=== PATIENT | female | born 2000 | race African-American/Black ===

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

== ENCOUNTER 2019-06-03 09:12 | Observation (INO) | payer MEDICAID ==
[~2019-06-03] VITALS: Ht 160 cm; Wt 67.1 kg
[2019-06-03] MEDS ORDERED: LACTATED RINGERS 1,000 ML IV SCH (10:42)
[2019-06-03] MEDS ORDERED: DEXT 5%/LR + PITOCIN 20UNITS/L 1,000 ML IV SCH ×2 (10:42→19:37)
[2019-06-03] MEDS ORDERED: BUTORPHANOL TARTRATE 2 MG/ML VIAL IV PRN (10:45)
[2019-06-03] MEDS ORDERED: MISOPROSTOL 100MCG TABLET VG SCH (10:45)
[2019-06-03] MEDS ORDERED: LIDOCAINE HCL 1% 20ML VIAL (Pyxis) INJ INFIL SCH (10:45)
[2019-06-03] MEDS ORDERED: PENICILLIN G POTASSIUM 5 MMU in DEXT 5% WATER 100 ML IV SCH (12:00)
[2019-06-03 12:11] LABS: BASOPHILS % 0.4 % (0.0-2.0); HEMATOCRIT. 31.1 % (36.0-48.0); HEMOGLOBIN. 10.7 g/dL (12.0-16.0); LYMPHOCYTES % 15.3 % (20.0-50.0); MEAN CORPUSCULAR HEMOGLOBIN 27.9 pg (28.0-32.0); MEAN CORPUSCULAR VOLUME 81.1 fL (81.0-99.0); MEAN PLATELET VOLUME 8.3 fl (7.4-10.4); MONOCYTES % 8.9 % (2.0-8.0); NEUTROPHILS % 75.4 % (40.0-76.0); PLATELET 291 x1000/uL (130-400); RED BLOOD CELL COUNT 3.84 mill/uL (4.2-5.4); RED CELL DISTRIBUTION WIDTH 13.5 % (11.6-14.6)
[2019-06-03 12:16] LABS: CLARITY URINE CLOUDY (CLEAR); COLOR URINE YELLOW (YELLOW); KETONES URINE 3+ (NEGATIVE); LEUKOCYTE ESTERASE URINE 3+ (NEGATIVE); NITRITE URINE NEGATIVE (NEGATIVE); OCCULT BLOOD URINE 2+ (NEGATIVE); PH URINE 6.5 (4.5-8.0); PROTEIN URINE NEGATIVE (NEGATIVE); SPECIFIC GRAVITY URINE 1.014 (1.005-1.030)
[2019-06-03 12:41] LABS: INR 0.9; PARTIAL THROMBOPLASTIN TIME 30.1 sec (23.4-31.0); PROTHROMBIN TIME 9.4 sec (9.6-11.0)
[2019-06-03] MEDS ORDERED: ONDANSETRON HCL 4MG/2ML INJ IV PRN (13:00)
[2019-06-03] MEDS ORDERED: DIPHENHYDRAMINE 50MG/ML VIAL IV PRN (13:00)
[2019-06-03] MEDS ORDERED: METOCLOPRAMIDE HCL 10MG/2ML VIAL IV PRN (13:00)
[2019-06-03] MEDS ORDERED: ROPIVACAINE HCL/PF EPIDURAL 200 ML EP SCH (13:00)
[2019-06-03] MEDS ORDERED: BUPIVACAINE HCL/PF 0.25% (2.5MG/ML) 10ML ONE (14:29)
[2019-06-03 15:15] LABS: HEPATITIS B SURFACE ANTIGEN NEGATIVE
[2019-06-03 15:44] LABS: *AMPHETAMINES SCREEN URINE NEGATIVE (NEGATIVE); *BARBITURATES SCREEN URINE NEGATIVE (NEGATIVE); *BENZODIAZEPINES SCREEN URINE NEGATIVE (NEGATIVE); *COCAINE SCREEN URINE NEGATIVE (NEGATIVE); METHADONE URINE SCREEN NEGATIVE (NEGATIVE); OPIATES URINE SCREEN NEGATIVE (NEGATIVE)
[2019-06-03 15:45] LABS: PHENCYCLIDINE URINE SCREEN NEGATIVE (NEGATIVE)
[2019-06-03 15:54] LABS: CANNABINOID URINE SCREEN PRESUMTIVE POSITIVE (NEGATIVE)
[2019-06-03] MEDS ORDERED: PENICILLIN G POTASSIUM 2.5 MMU in DEXTROSE 5% WATER 50 ML IV SCH (16:00)
[2019-06-03] MEDS ORDERED: MINERAL OIL 30ML BOTTLE PR NR (19:15)
[2019-06-03] MEDS ORDERED: IBUPROFEN 400MG TABLET PO PRN (19:45)
[2019-06-03] MEDS ORDERED: METHYLERGONOVINE MALEATE 0.2 MG/ML IM PRN (19:45)
[2019-06-03] MEDS ORDERED: LANOLIN OINT 7GM TUBE TOP PRN (19:45)
[2019-06-03] MEDS ORDERED: RHO(D) IMMUNE GLOBULIN 300 MCG/SYR IM PRN (19:45)
[2019-06-03] MEDS: IBUPROFEN 800MG TABLET PO PRN (20:19)
[2019-06-03] MEDS: DOCUSATE SODIUM 100MG CAPSULE PO SCH ×2 (20:20→22:30)
[2019-06-03 22:30] VITALS: BP 115/54
[2019-06-04 04:00] VITALS: BP 116/60
[2019-06-04 07:30] VITALS: BP 119/65
[2019-06-04] MEDS: PRENATAL VIT/FE FUMARATE/FA TABLET PO SCH (07:58)
[2019-06-04] MEDS: IBUPROFEN 800MG TABLET PO PRN ×2 (07:59→18:24)
[2019-06-04 11:45] LABS: BASOPHILS % 0.1 % (0.0-2.0); EOSINOPHILS % 0.1 % (0.0-5.0); HEMATOCRIT. 26.8 % (36.0-48.0); HEMOGLOBIN. 9.3 g/dL (12.0-16.0); LYMPHOCYTES % 15.4 % (20.0-50.0); MEAN CORPUSCULAR HEMOGLOBIN 28.2 pg (28.0-32.0); MEAN CORPUSCULAR VOLUME 81.4 fL (81.0-99.0); MONOCYTES % 9.8 % (2.0-8.0); NEUTROPHILS % 74.6 % (40.0-76.0); PLATELET 274 x1000/uL (130-400); RED BLOOD CELL COUNT 3.29 mill/uL (4.2-5.4); RED CELL DISTRIBUTION WIDTH 13.7 % (11.6-14.6)
[2019-06-04 16:00] VITALS: BP 96/55
[2019-06-04] MEDS: DOCUSATE SODIUM 100MG CAPSULE PO SCH (20:49)
[2019-06-04] MEDS: NITROFURANTOIN 100MG M/M CAPSULE PO SCH (20:50)
[2019-06-04 22:00] VITALS: BP 104/55
[2019-06-05 04:00] VITALS: BP 109/62
[2019-06-05 08:00] VITALS: BP 106/69
[2019-06-05] MEDS: PRENATAL VIT/FE FUMARATE/FA TABLET PO SCH (08:06)
[2019-06-05] MEDS: NITROFURANTOIN 100MG M/M CAPSULE PO SCH (08:07)
[2019-06-05] MEDS: IBUPROFEN 800MG TABLET PO PRN (08:07)
[2019-06-09 07:12] LABS: CANNABINOID CONFIRMATION URINE Positive (.)
== END 2019-06-05 12:00 | disposition home or self-care (01) ==
LOC: 8 EST LDRP 09:12 → 8 EST A/PP 15:54 → 8 EST LDRP 18:20 → 8EST 21:54
PROVIDERS: ADMIT Obstetrics & Gynecology; ATTEND Obstetrics & Gynecology
DX: O62.9 Abnormality of forces of labor, unspecified (principal); O99.52 Diseases of the respiratory system complicating childbirth; J45.909 Unspecified asthma, uncomplicated; Z3A.38 38 weeks gestation of pregnancy
CPT/HCPCS: 36415; 80305; 80349; 81003; 85025; 85610; 85730; 86592; 86703; 86762; 86850; 86900; 86901; 87077; 87086; 87186; 87340; 96365; 96366; 96368; 96375; 99281; G0378; J0595; J2540; J2590; J2795; J3490; J7060

== ENCOUNTER 2019-06-25 09:10 | Emergency (ER) | payer MEDICAID ==
[~2019-06-25] VITALS: Ht 160 cm; Wt 63.0 kg
[2019-06-25] MEDS ORDERED: SODIUM CHLORIDE 0.9% 1,000 ML IV ONE (10:19)
[2019-06-25 10:35] LABS: BASOPHILS % 0.3 % (0.0-2.0); EOSINOPHILS % 1.4 % (0.0-5.0); HEMATOCRIT. 36.1 % (36.0-48.0); HEMOGLOBIN. 11.8 g/dL (12.0-16.0); LYMPHOCYTES % 24.3 % (20.0-50.0); MEAN CORPUSCULAR HEMOGLOBIN 27.4 pg (28.0-32.0); MEAN CORPUSCULAR VOLUME 84.2 fL (81.0-99.0); MEAN PLATELET VOLUME 9.1 fl (7.4-10.4); PLATELET 183 x1000/uL (130-400); RED BLOOD CELL COUNT 4.29 mill/uL (4.2-5.4); RED CELL DISTRIBUTION WIDTH 14.1 % (11.6-14.6)
[2019-06-25 10:39] LABS: CHLORIDE 110 mEq/L (98-107)
[2019-06-25] MEDS ORDERED: AMPICILLIN SOD/SULBACTAM NA 3 G in SODIUM CHLORIDE 0.9% 100 ML IV SCH (12:15)
[2019-06-25] MEDS ORDERED: HYDROCODONE/ACETAMINOPHEN 10/325MG TABLET PO ONE (12:15)
[2019-06-25] MEDS ORDERED: IOHEXOL-300 100 ML BOTTLE ONE (12:22)
[2019-06-25 15:00] VITALS: BP 113/78
== END 2019-06-25 15:15 | disposition home or self-care (01) ==
LOC: ER 09:10
DX: L02.01 Cutaneous abscess of face (principal); Z91.14 Patient's other noncompliance with medication regimen
CPT/HCPCS: 36415; 70487; 80053; 85025; 96365; 99284; J0295; J7030; J7050; Q9967

== ENCOUNTER 2024-10-25 11:11 | Emergency (ER) | payer MEDICAID, OTHER ==
[~2024-10-25] VITALS: Ht 162.6 cm; Wt 70.0 kg
[2024-10-25 11:13] VITALS: BP 124/70; PULSE 75; RESP 18; O2SAT 100
[2024-10-25 11:57] LABS: BASOPHILS % 0.4 % (0.0-2.0); EOSINOPHILS % 0.9 % (0.0-5.0); HEMATOCRIT. 37.6 % (36.0-48.0); LYMPHOCYTES % 27.4 % (20.0-50.0); MEAN CORPUSCULAR HEMOGLOBIN 27.9 pg (28.0-32.0); MEAN CORPUSCULAR VOLUME 87.2 fL (81.0-99.0); MEAN PLATELET VOLUME 8.6 fl (7.4-10.4); MONOCYTES % 9.5 % (2.0-8.0); NEUTROPHILS % 61.8 % (40.0-76.0); PLATELET 144 x1000/uL (130-400); RED BLOOD CELL COUNT 4.31 mill/uL (4.2-5.4); RED CELL DISTRIBUTION WIDTH 14.1 % (11.6-14.6); WHITE BLOOD COUNT 3.8 x1000/uL (4.5-11.0)
[2024-10-25 12:02] LABS: CHLORIDE 109 mEq/L (98-107); SODIUM 140 mEq/L (136-145)
[2024-10-25 12:03] LABS: CARBON DIOXIDE 23 mEq/L (21-32)
[2024-10-25 12:08] LABS: CREATININE 1.1 mg/dL (0.6-1.0); GLUCOSE 164 mg/dL (70-105); UREA NITROGEN BLOOD 9 mg/dL (9-23)
[2024-10-25 12:14] LABS: TROPONIN I HIGH SENSITIVITY < 4 ng/L (3.0-34)
[2024-10-25] MEDS: ACETAMINOPHEN 325MG TABLET PO STA (12:41)
[2024-10-25] MEDS ORDERED: ALBU18HF2 IH (13:01)
[2024-10-25] MEDS ORDERED: P50 PO (13:01)
[2024-10-25] MEDS ORDERED: TOPUD PO (13:03)
[2024-10-25] MEDS: POTASSIUM CHLORIDE 20MEQ/PACKET PO ONE (13:53)
[2024-10-25] MEDS ORDERED: IBUP-2029 PO (13:56)
[2024-10-25 14:58] LABS: POTASSIUM 2.8 mEq/L (3.5-5.1)
== END 2024-10-25 15:20 | disposition home or self-care (01) ==
LOC: ER 11:16
DX: R07.89 Other chest pain (principal); J45.901 Unspecified asthma with (acute) exacerbation; Z79.1 Long term (current) use of non-steroidal anti-inflammatories (NSAID); Z79.52 Long term (current) use of systemic steroids
CPT/HCPCS: 36415; 71045; 80048; 84484; 85025; 85379; 99284